=== PATIENT | male | born 1960 | race Caucasian/White ===

== ENCOUNTER 2025-07-09 12:13 | Emergency (ER) | payer MEDICARE ==
[2025-07-09 13:37] LABS: #Basophils 0.04 10x3/uL (0.0-0.2); #Eosinophils 0.15 10x3/uL (0.0-0.5); #Monocytes 1.07 10x3/uL (0.0-1.1); #Neutrophils 11.22 10x3/uL (1.5-8.4); %Basophils 0.3 % (0.0-2.0); %Eosinophils 1.1 % (0.0-6.0); %Lymphocytes 8.9 % (18.0-47.0); %Monocytes 7.8 % (0.0-10.0); %Neutrophils 81.5 % (40.0-75.0); Hematocrit 37.1 % (38.8-50.0); Hemoglobin 12.3 g/dL (13.5-17.5); Mean Corpuscular Hemoglobin 29.2 pg (27.0-33.0); Mean Corpuscular Volume 88.1 fL (81.2-95.1); Platelet Count 178 10x3/uL (150-450); Red Blood Cell (RBC) Count 4.21 10x6/uL (4.32-5.72); White Blood Cell (WBC) Count 13.75 10x3/uL (3.5-10.5)
[2025-07-09 14:08] LABS: ALT (SGPT) 13 U/L (Less than 45); AST (SGOT) 25 U/L (11-34); Albumin 3.5 g/dL (3.1-4.5); Alkaline Phosphatase 95 U/L (40-110); Anion Gap 10 mmol/L (10-20); BUN (Urea Nitrogen) 9 mg/dL (8.4-25.7); Bilirubin, Total 0.7 mg/dL (0.3-1.2); Calc. Creatinine Clearance 0 mL/min (70-130); Calcium 8.5 mg/dL (7.8-10.44); Carbon Dioxide 21 mmol/L (23-31); Chloride 106 mmol/L (98-107); Globulin 3.5 g/dL (2.4-3.5); Glucose 90 mg/dL (80-115); Potassium 3.4 mmol/L (3.5-5.1); Sodium 134 mmol/L (136-145)
[2025-07-09 14:21] LABS: Glucose, Urine (Dipstick) Normal (Negative); Leukocyte Negative (Negative); Protein, Urine (Dipstick) 30 mg/dl (Neg-Trace); Specific Gravity, Urine 1.020 (1.005-1.030)
[2025-07-09 14:24] LABS: Troponin I 0.017 ng/mL (< 0.028)
[2025-07-09 14:24] LABS: Bacteria/HPF 1+ HPF (None Seen); CAUTI Indications for Culture Fever or rigors; WBC/HPF 0-3 HPF (0-3)
[2025-07-09 14:25] LABS: Urine Culture Reflex No No
== END 2025-07-09 15:56 | disposition home or self-care (01) ==
LOC: CSHERS 12:13
DX: J20.9 Acute bronchitis, unspecified (principal); N39.0 Urinary tract infection, site not specified
CPT/HCPCS: 36415; 71046; 80053; 81001; 83605; 83880; 84484; 85025; 87428; 93005; 93010

== ENCOUNTER 2025-07-18 13:25 | Outpatient (CLI) | payer MEDICARE | END 2025-07-18 13:26 | disposition home or self-care (01) | LOC: CSHWCC 13:25 | PROVIDERS: ATTEND Nurse Practitioner Family | DX: L89.893 Pressure ulcer of other site, stage 3 (principal); G82.22 Paraplegia, incomplete; F17.200 Nicotine dependence, unspecified, uncomplicated | CPT/HCPCS: 11042; 99406; G0463; 99214 ==

== ENCOUNTER 2025-08-01 11:13 | Outpatient (CLI) | payer MEDICARE | END 2025-08-01 11:14 | disposition home or self-care (01) | LOC: CSHWCC 11:13 | PROVIDERS: ATTEND Nurse Practitioner Family | DX: L89.893 Pressure ulcer of other site, stage 3 (principal); G82.22 Paraplegia, incomplete; Z72.0 Tobacco use | CPT/HCPCS: 11042 ==

== ENCOUNTER 2025-08-15 11:04 | Outpatient (CLI) | payer MEDICARE | END 2025-08-15 11:05 | disposition home or self-care (01) | LOC: CSHWCC 11:04 | PROVIDERS: ATTEND Nurse Practitioner Family | DX: L89.893 Pressure ulcer of other site, stage 3 (principal); G82.22 Paraplegia, incomplete; Z72.0 Tobacco use | CPT/HCPCS: 97597 ==

== ENCOUNTER 2025-08-22 13:26 | Outpatient (CLI) | payer MEDICARE | END 2025-08-22 13:27 | disposition home or self-care (01) | LOC: CSHWCC 13:26 | PROVIDERS: ATTEND Nurse Practitioner Family | DX: L89.893 Pressure ulcer of other site, stage 3 (principal); G82.22 Paraplegia, incomplete; Z72.0 Tobacco use | CPT/HCPCS: 97597 ==

== ENCOUNTER 2025-09-05 10:58 | Outpatient (CLI) | payer MEDICARE | END 2025-09-05 10:59 | disposition home or self-care (01) | LOC: CSHWCC 10:58 | PROVIDERS: ATTEND Nurse Practitioner Family | DX: L89.893 Pressure ulcer of other site, stage 3 (principal); G82.22 Paraplegia, incomplete; Z72.0 Tobacco use | CPT/HCPCS: 97597 ==

== ENCOUNTER 2025-09-19 11:08 | Outpatient (CLI) | payer MEDICARE | END 2025-09-19 11:09 | disposition home or self-care (01) | LOC: CSHWCC 11:08 | PROVIDERS: ATTEND Nurse Practitioner Family | DX: L89.893 Pressure ulcer of other site, stage 3 (principal); G82.22 Paraplegia, incomplete; Z72.0 Tobacco use | CPT/HCPCS: 99213; G0463 ==